=== PATIENT | female | born 1940 | race Asian ===

== ENCOUNTER → 2017-02-16 | Outpatient (CLI) | payer MEDICARE, MEDICAID ==
[~2017-02-16] VITALS: Ht 149.9 cm; Wt 59.8 kg
[~2017-02-16] MED LIST: ACET-784 PO; ARGI1POW13 PO; ASCO500 PO; ASPI81 PO; ATOR10TA84 PO; CALC500T62 PO; CYAN50008 PO; DIPH25 PO; DIPH25TA17 PO; FERR-89 PO; FOLI1 PO; LACT1.5C PO; METF500T4 PO; MULT1TAB PO; MULT1TAB70 PO; RALO60 PO; SIMV20TA6 PO; THIA100 PO; VALS160T2 PO; VANC1I IV; VITAD1000 PO; ZINC50TA2 PO
[2017-02-16 08:53] VITALS: BP 125/74
== END | disposition home or self-care (01) ==
LOC: HBOWC 08:23
PROVIDERS: ATTEND Surgery Plastic and Reconstructive Surgery
DX: S31.000A Unspecified open wound of lower back and pelvis without penetration into retroperitoneum, initial encounter (principal); X58.XXXA Exposure to other specified factors, initial encounter; Y93.89 Activity, other specified; Y92.89 Other specified places as the place of occurrence of the external cause; Y99.8 Other external cause status
CPT/HCPCS: 11043; G0463

== ENCOUNTER 2017-02-23 15:04 | Inpatient (IN) | payer OTHER ==
[~2017-02-23] VITALS: Ht 149.9 cm; Wt 60.8 kg
[2017-02-23] MEDS ORDERED: DIPH25 PO (15:35)
[2017-02-23 17:29] LABS: BASOPHILS % (AUTO) 0.4 % (0.0-2.0); EOSINOPHILS % (AUTO) 9.6 % (1.0-6.0); HEMATOCRIT 31.8 % (36-46); HEMOGLOBIN 10.7 g/dL (12.0-16.0); LYMPHOCYTES % (AUTO) 18.3 % (22.0-44.0); MEAN CORPUSCULAR HEMOGLOBIN 31.1 pg (26.0-34.0); MEAN CORPUSCULAR HGB CONC 33.6 G/dL (31.0-37.0); MEAN CORPUSCULAR VOLUME 93 fL (80-100); MONOCYTES # (AUTO) 0.6 K/uL (0.1-1.0); MONOCYTES % (AUTO) 11.4 % (2.0-9.0); NEUTROPHILS # (AUTO) 3.3 K/uL (1.8-7.7); NEUTROPHILS % (AUTO) 60.3 % (40.0-70.0); PLATELET COUNT (AUTO) 378 K/uL (150-450); RED BLOOD CELL COUNT(AUTO) 3.43 MIL/uL (4.00-5.20); RED CELL DISTRIBUTION WIDTH 18.5 % (11.5-14.5); WHITE BLOOD COUNT (AUTO) 5.5 K/uL (4.5-11.0)
[2017-02-23 17:45] LABS: CALCIUM, TOTAL 8.4 mg/dL (8.8-10.5); CREATININE 0.92 mg/dL (0.60-1.30); POTASSIUM 3.2 mmol/L (3.5-5.1)
[2017-02-23 17:50] LABS: ALBUMIN 2.9 g/dL (3.4-5.0); BILIRUBIN,TOTAL 0.4 mg/dL (0.1-1.0); TOTAL PROTEIN, SERUM 6.3 g/dL (6.4-8.2)
[2017-02-23 18:36] LABS: RBC MORPHOLOGY COMMENT ABNORMAL RBC MORPH
[2017-02-23] MEDS ORDERED: DEXAMETHASONE SOD PHOS 10 MG/ML VIAL IVP ONE (19:30)
[2017-02-23] MEDS ORDERED: DiphenhydrAMINE HCL 50 MG/ML VIAL IVP ONE (19:30)
[2017-02-23 20:46] VITALS: BP 122/70
[2017-02-23] MEDS ORDERED: ACETAMINOPHEN 325 MG TABLET PO PRN (21:30)
[2017-02-23] MEDS ORDERED: DEXTROSE 50%-WATER 25 GM/50 ML SYRINGE IVP PRN (21:30)
[2017-02-23] MEDS ORDERED: INSULIN ASPART 100 UNITS/ML SQ PRN (21:30)
[2017-02-23 21:43] LABS: GLUCOSE,POINT OF CARE 172 MG/DL (70-110)
[2017-02-23] MEDS ORDERED: POTASSIUM CHL 10 MEQ/WATER 50 ML IV PRN (22:30)
[2017-02-23] MEDS ORDERED: POTASSIUM CHLORIDE 20 MEQ ER TABLET PO PRN (22:30)
[2017-02-24] VITALS: BP 126/59
[2017-02-24 03:30] VITALS: BP 126/62
[2017-02-24 05:58] LABS: GLUCOSE,POINT OF CARE 144 MG/DL (70-110)
[2017-02-24 06:49] LABS: BASOPHILS % (AUTO) 0.8 % (0.0-2.0); EOSINOPHILS % (AUTO) 0.3 % (1.0-6.0); HEMATOCRIT 32.5 % (36-46); HEMOGLOBIN 10.9 g/dL (12.0-16.0); LYMPHOCYTES # (AUTO) 0.5 K/uL (1.0-4.8); LYMPHOCYTES % (AUTO) 21.1 % (22.0-44.0); MEAN CORPUSCULAR HGB CONC 33.4 G/dL (31.0-37.0); MEAN CORPUSCULAR VOLUME 93 fL (80-100); MONOCYTES # (AUTO) 0.1 K/uL (0.1-1.0); MONOCYTES % (AUTO) 2.2 % (2.0-9.0); NEUTROPHILS # (AUTO) 1.9 K/uL (1.8-7.7); NEUTROPHILS % (AUTO) 75.6 % (40.0-70.0); PLATELET COUNT (AUTO) 327 K/uL (150-450); RED BLOOD CELL COUNT(AUTO) 3.51 MIL/uL (4.00-5.20); RED CELL DISTRIBUTION WIDTH 18.9 % (11.5-14.5); WHITE BLOOD COUNT (AUTO) 2.5 K/uL (4.5-11.0)
[2017-02-24 07:27] VITALS: BP 103/70
[2017-02-24 07:29] LABS: ALANINE AMINOTRANSFERASE 30 U/L (12-78); ANION GAP 9 mmol/L (8-16); ASPARTATE AMINOTRANSFERASE 19 U/L (15-37); BILIRUBIN,TOTAL 0.5 mg/dL (0.1-1.0); CALCIUM, TOTAL 8.4 mg/dL (8.8-10.5); CARBON DIOXIDE 25 mmol/L (22-29); CHLORIDE 103 mmol/L (98-107); CREATININE 0.63 mg/dL (0.60-1.30); GLOMERULAR FILTR. RATE CALC > 60 mL/min (>60); POTASSIUM 4.1 mmol/L (3.5-5.1); SODIUM SERUM 137 mmol/L (136-145); TOTAL PROTEIN, SERUM 6.6 g/dL (6.4-8.2); UREA NITROGEN, BLOOD 17 mg/dL (7-18)
[2017-02-24] MEDS: DOCUSATE SODIUM 100 MG CAPSULE PO SCH ×2 (08:40→20:27)
[2017-02-24] MEDS: PANTOPRAZOLE SODIUM 40 MG DR TABLET PO SCH (08:40)
[2017-02-24 09:55] LABS: RBC MORPHOLOGY COMMENT ABNORMAL RBC MORPH
[2017-02-24 11:44] VITALS: BP 100/54
[2017-02-24 12:03] LABS: GLUCOSE,POINT OF CARE 123 MG/DL (70-110)
[2017-02-24] MEDS: HydrOXYzine HCL 25 MG TABLET PO PRN ×2 (12:32→20:28)
[2017-02-24] MEDS: MINERAL OIL/PETROLATUM 120 GM CREAM TP SCH ×2 (12:32→20:27)
[2017-02-24 17:33] LABS: GLUCOSE,POINT OF CARE 136 MG/DL (70-110)
[2017-02-24] MEDS: PredniSONE 20 MG TABLET PO SCH (17:35)
[2017-02-24] MEDS ORDERED: PredniSONE 10 MG TABLET PO SCH (18:00)
[2017-02-24 19:45] VITALS: BP 120/69
[2017-02-24] MEDS: BETAMETHASONE DIP 0.05% 15 GM CREAM TP SCH (20:27)
[2017-02-24 21:55] LABS: GLUCOSE,POINT OF CARE 151 MG/DL (70-110)
[2017-02-24 23:39] VITALS: BP 118/68
[2017-02-25 04:46] VITALS: BP 127/75
[2017-02-25 06:18] LABS: GLUCOSE,POINT OF CARE 120 MG/DL (70-110)
[2017-02-25 06:45] LABS: BASOPHILS % (AUTO) 0.3 % (0.0-2.0); EOSINOPHILS % (AUTO) 4.7 % (1.0-6.0); HEMATOCRIT 29.5 % (36-46); HEMOGLOBIN 9.8 g/dL (12.0-16.0); LYMPHOCYTES % (AUTO) 16.9 % (22.0-44.0); MEAN CORPUSCULAR HEMOGLOBIN 31.1 pg (26.0-34.0); MEAN CORPUSCULAR HGB CONC 33.3 G/dL (31.0-37.0); MEAN CORPUSCULAR VOLUME 93 fL (80-100); MONOCYTES # (AUTO) 0.8 K/uL (0.1-1.0); MONOCYTES % (AUTO) 13.7 % (2.0-9.0); NEUTROPHILS # (AUTO) 3.8 K/uL (1.8-7.7); NEUTROPHILS % (AUTO) 64.4 % (40.0-70.0); PLATELET COUNT (AUTO) 413 K/uL (150-450); RED BLOOD CELL COUNT(AUTO) 3.16 MIL/uL (4.00-5.20); RED CELL DISTRIBUTION WIDTH 18.6 % (11.5-14.5); WHITE BLOOD COUNT (AUTO) 5.8 K/uL (4.5-11.0)
[2017-02-25 06:57] LABS: ANION GAP 11 mmol/L (8-16); CALCIUM, TOTAL 8.4 mg/dL (8.8-10.5); CARBON DIOXIDE 25 mmol/L (22-29); CHLORIDE 105 mmol/L (98-107); CREATININE 0.44 mg/dL (0.60-1.30); GLOMERULAR FILTR. RATE CALC > 60 mL/min (>60); POTASSIUM 3.6 mmol/L (3.5-5.1); SODIUM SERUM 141 mmol/L (136-145); UREA NITROGEN, BLOOD 20 mg/dL (7-18)
[2017-02-25 07:13] VITALS: BP 111/64
[2017-02-25 08:27] LABS: RBC MORPHOLOGY COMMENT ABNORMAL RBC MORPH
[2017-02-25] MEDS: DOCUSATE SODIUM 100 MG CAPSULE PO SCH (10:17)
[2017-02-25] MEDS: PredniSONE 20 MG TABLET PO SCH (10:18)
[2017-02-25] MEDS: PANTOPRAZOLE SODIUM 40 MG DR TABLET PO SCH (10:18)
[2017-02-25] MEDS: BETAMETHASONE DIP 0.05% 15 GM CREAM TP SCH (10:18)
[2017-02-25] MEDS: MINERAL OIL/PETROLATUM 120 GM CREAM TP SCH (10:18)
[2017-02-25 11:41] VITALS: BP 143/77
[2017-02-25 14:57] LABS: GLUCOSE,POINT OF CARE 112 MG/DL (70-110)
[2017-02-28] MEDS ORDERED: PredniSONE 10 MG TABLET PO SCH (09:00)
[2017-03-04] MEDS ORDERED: PredniSONE 20 MG TABLET PO SCH (09:00)
[2017-03-08] MEDS ORDERED: PredniSONE 10 MG TABLET PO SCH (09:00)
== END 2017-02-25 15:15 | DRG 607 ==
LOC: EMS 15:08 → 6N 17:56
PROVIDERS: ADMIT Internal Medicine; ATTEND Internal Medicine
DX: R21 Rash and other nonspecific skin eruption (principal); L89.152 Pressure ulcer of sacral region, stage 2; E11.69 Type 2 diabetes mellitus with other specified complication; E78.00 Pure hypercholesterolemia, unspecified; I10 Essential (primary) hypertension; L80 Vitiligo; T36.8X5A Adverse effect of other systemic antibiotics, initial encounter; D72.819 Decreased white blood cell count, unspecified
CPT/HCPCS: 82962; 87081; 93005; 96374; 96375; 99285; J1100; J1200

== ENCOUNTER → 2017-02-23 | Outpatient (CLI) | payer OTHER ==
[~2017-02-23] MED LIST changes: -CALC500T62 PO; -DIPH25TA17 PO; -MULT1TAB PO; -RALO60 PO; -SIMV20TA6 PO
[2017-02-23 09:42] VITALS: BP 127/62
== END | disposition home or self-care (01) ==
LOC: HBOWC 09:23
PROVIDERS: ATTEND Surgery Plastic and Reconstructive Surgery
DX: S31.000D Unspecified open wound of lower back and pelvis without penetration into retroperitoneum, subsequent encounter (principal); E78.5 Hyperlipidemia, unspecified; X58.XXXD Exposure to other specified factors, subsequent encounter
CPT/HCPCS: 11043